=== PATIENT | female | born 1990 | race Caucasian/White ===

== ENCOUNTER 2021-09-27 12:18 | Emergency (ER) | payer OTHER, SELFPAY ==
[2021-09-27 13:17] LABS: Urine Blood Negative (Negative); Urine Glucose Negative (Negative); Urine Protein Negative (Negative)
[2021-09-27 13:22] LABS: Absolute Lymphocytes (CBC) 2.1 K/uL (0.7-4.9); Hematocrit 39.3 % (36.0-45.0); Lymphocytes % 27.7 % (15.3-44.8); MPV 7.7 fL (7.6-11.3); RBC Red Blood Cell Count 4.92 M/uL (3.86-4.86)
[2021-09-27 13:28] LABS: Protime INR 0.97
[2021-09-27 13:39] LABS: Barbiturates NEGATIVE (NEGATIVE); Benzodiazepines NEGATIVE (NEGATIVE); Cocaine NEGATIVE (NEGATIVE); METHAMPHETAM NEGATIVE (NEGATIVE); Methadone NEGATIVE (NEGATIVE); Opiates NEGATIVE (NEGATIVE); Phencyclidine NEGATIVE (NEGATIVE); THC Cannibis NEGATIVE (NEGATIVE)
[2021-09-27 13:41] LABS: ALT/SGPT 139 U/L (12-78); AST/SGOT 99 U/L (15-37); Albumin 3.6 g/dL (3.4-5.0); Alkaline Phosphatase 311 U/L (45-117); BUN Blood Urea Nitrogen 12 mg/dL (7-18); Bicarbonate 24 mmol/L (21-32); Bilirubin Direct 0.2 mg/dL (0-0.2); Bilirubin Total 0.6 mg/dL (0.2-1.0); Glucose Level 115 mg/dL (74-106); Potassium 4.1 mmol/L (3.5-5.1); Protein, Total 7.4 g/dL (6.4-8.2); Sodium Level 138 mmol/L (136-145)
--- NOTE | 2021-09-27 15:42 | EDPHYS ---
Physician Documentation [facility] Name: Sharon Disla Age: 31 yrs Sex: Female : 1990 Arrival Date: 09/27/2021 Time: 12:22 Bed 15 Private MD: ED Physician Emil Robert HPI: 09/27 13:20 This 31 yrs old Female presents to ER via Ambulatory with complaints of Psych Problem. rn 13:20 Onset: The symptoms/episode began/occurred yesterday. Severity of symptoms: At their rn worst the symptoms were mild in the emergency department the symptoms are unchanged. The patient has not experienced similar symptoms in the past. The patient has not recently seen a physician. Patient reports that in the last few days has been having vivid thoughts and/or daydreams in which she was drowning her dog. Has never had thoughts like this. Denies suicidal or homicidal ideations. Does report has had thoughts of drowning her 3-month-old baby but does not feel like she would act on this and realizes that they are just thoughts and/or dreams. No changes in medication. Does not feel ill. No drugs or alcohol. Spoke to her counselor and her counselor referred her here to the emergency room for evaluation.. 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 - Social history:: Smoking status: Patient reports the use of cigarette tobacco products, smokes one pack cigarettes per day. Patient uses street drugs, marijuana, Patient/guardian denies using alcohol. - Family history:: not pertinent. - Hospitalizations: : No recent hospitalization is reported. ROS: 13:20 Constitutional: Negative for fever, chills, and weight loss, Eyes: Negative for injury, rn pain, redness, and discharge, Neck: Negative for injury, pain, and swelling, Cardiovascular: Negative for chest pain, palpitations, and edema, Respiratory: Negative for shortness of breath, cough, wheezing, and pleuritic chest pain, Abdomen/GI: Negative for abdominal pain, nausea, vomiting, diarrhea, and constipation, Back: Negative for injury and pain, : Negative for injury, bleeding, discharge, and swelling, MS/Extremity: Negative for injury and deformity, Skin: Negative for injury, rash, and discoloration, Neuro: Negative for headache, weakness, numbness, tingling, and seizure, Psych: Negative for suicide ideation, homicidal ideation, and hallucinations. Exam: 13:20 Constitutional: This is a well developed, well nourished patient who is awake, alert, rn tearful Head/Face: Normocephalic, atraumatic. Eyes: Periorbital areas with no swelling, redness, or edema. Cardiovascular: Regular rate and rhythm. No pulse deficits. Respiratory: No increased work of breathing, no retractions or nasal flaring. Abdomen/GI: Soft, non-tender Skin: Warm, dry MS/ Extremity: Pulses equal, no cyanosis. Neuro: Awake and alert, GCS 15 Vital Signs: 12:28 BP 139 / 77; Pulse 92; Resp 18; Temp 97.8(TE); Pulse Ox 99% on R/A; Weight 145.15 kg; ld1 Height 6 ft. 0 in. (182.88 cm); Pain 0/10; 15:54 BP 104 / 72; Pulse 77; Resp 18; ww 12:28 Body Mass Index 43.40 (145.15 kg, 182.88 cm) ld1 MDM: 12:36 Patient medically screened. rn 15:39 Differential diagnosis: depression, post- depression. Data reviewed: vital signs, rn nurses notes, lab test result(s), EKG, and as a result, I will discharge patient. Counseling: I had a detailed discussion with the patient and/or guardian regarding: the historical points, exam findings, and any diagnostic results supporting the discharge/admit diagnosis, lab results, the need for outpatient follow up, to return to the emergency department if symptoms worsen or persist or if there are any questions or concerns that arise at home. Special discussion: I discussed with the patient/guardian in detail that at this point there is no indication for admission to the hospital. It is understood, however, that if the symptoms persist or worsen the patient needs to return immediately for re-evaluation. Based on the history and exam findings, there is no indication for further emergent testing or inpatient evaluation. I discussed with the patient/guardian the need to see the psychiatrist for further evaluation of the symptoms. ED course: Pt evaluated by [facility], deemed safe for discharge, has f/u appt with her private psychiatrist, does not feel like she is going to act on her thoughts, still denies suicidal or homicidal intent. . 09/27 12:47 Order name: Acetaminophen; Complete Time: 14: 09/27 12:47 Order name: Basic Metabolic Panel; Complete Time: 14: 09/27 12:47 Order name: CBC with Diff; Complete Time: 14: 09/27 12:47 Order name: ETOH Level; Complete Time: 14: 09/27 12:47 Order name: Hepatic Function; Complete Time: 14: 09/27 12:47 Order name: PT-INR; Complete Time: 14:09/27 12:47 Order name: Ptt, Activated; Complete Time: 14: 09/27 12:47 Order name: Salicylate; Complete Time: 14: 09/27 12:47 Order name: Urine Drug Screen; Complete Time: 14: 09/27 12:47 Order name: EKG; Complete Time: 12:48 09/27 13:05 Order name: SARS-COV-2 RT PCR (Document "Date of Onset" if Symptomatic) 09/27 13:06 Order name: SARS-COV-2 RT PCR; Complete Time: 14:08 [facility] 09/27 13:17 Order name: Urine Dipstick-Ancillary; Complete Time: 14: [facility] 09/27 13:22 Order name: Urine --Ancillary (enter results); Complete Time: 14:08 09/27 12:47 Order name: EKG - Nurse/Tech; Complete Time: 13:27 09/27 12:47 Order name: IV Saline Lock; Complete Time: 13:27 09/27 12:47 Order name: Labs collected and sent; Complete Time: 13:27 rn 09/27 12:47 Order name: Suicide Screening ([place]); Complete Time: 15:32 rn 09/27 12:47 Order name: Urine Dipstick-Ancillary (obtain specimen); Complete Time: 13:27 rn 09/27 12:47 Order name: Urine Test (obtain specimen); Complete Time: 13:27 rn Administered Medications: No medications were administered Disposition Summary: 09/27/21 15:41 Discharge Ordered Location: Home rn Problem: new rn Symptoms: have improved rn Condition: Stable rn Diagnosis - Bipolar disorder, unspecified rn - Other depressive episodes rn Followup: rn - With: Private Physician - When: As needed - Reason: Recheck today's complaints, Re-evaluation by your physician Discharge Instructions: - Discharge Summary Sheet rn - Managing Bipolar Disorder rn - Managing Depression, Adult rn Forms: - Medication Reconciliation Form rn - Thank You Letter rn - Antibiotic employment attorney - Prescription Opioid Use rn Signatures: Dispatcher [employer] Emil Black MD MD rn Dibbern, Lauren RN RN ld1
--- NOTE | 2021-09-27 15:42 | ER ---
Nurse's Notes [facility] Name: Sharon Disla Age: 31 yrs Sex: Female : 1990 Arrival Date: 09/27/2021 Time: 12:22 Bed 15 Private MD: Diagnosis: Bipolar disorder, unspecified;Other depressive episodes Presentation: 09/27 12:28 Chief complaint: Patient states: I see a counselor and nurse practitioner for ld1 psychiatric counseling. They referred me to the hospital to be evaluated due to thoughts I am having. I zone out and I have periods of feeling you I am not in control. No more than 30 seconds long, "I lose touch with reality and I could almost see things happening like drowning my dog." "I think she is concerned because I have a new baby." I do not have thoughts of acting on those intentions, but I am concerned because I feel like it is almost a dream. Pt reports having these thoughts about her baby - she says she can see it happening but she doesn't want it to happen. Coronavirus screen: At this time, the client does not indicate any symptoms associated with coronavirus-19. Ebola Screen: No symptoms or risks identified at this time. Initial Sepsis Screen: Does the patient meet any 2 criteria? No. Patient's initial sepsis screen is negative. Does the patient have a suspected source of infection? No. Patient's initial sepsis screen is negative. Risk Assessment: Do you want to hurt yourself or someone else? Patient reports no desire to harm self or others. Onset of symptoms was September 27, 2021. 12:28 Method Of Arrival: Ambulatory ld1 12:28 Acuity: LEDY 2 ld1 Triage Assessment: 12:28 General: Appears in no apparent distress. comfortable, Behavior is calm, cooperative, ld1 appropriate for age. Pain: Denies pain. Neuro: Level of Consciousness is awake, alert, obeys commands, Oriented to person, place, time, situation. Respiratory: Airway is patent Respiratory effort is even, unlabored, Respiratory pattern is regular, symmetrical. GI: Abdomen is round non-distended. 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 - Social history:: Smoking status: Patient reports the use of cigarette tobacco products, smokes one pack cigarettes per day. Patient uses street drugs, marijuana, Patient/guardian denies using alcohol. - Family history:: not pertinent. - Hospitalizations: : No recent hospitalization is reported. Screenin:41 Abuse screen: Denies threats or abuse. Denies injuries from another. Nutritional ww screening: No deficits noted. Tuberculosis screening: No symptoms or risk factors identified. Fall Risk None identified. Assessment: 13:00 General: Appears comfortable, Behavior is calm, cooperative. Pain: Denies pain. Neuro: ww Level of Consciousness is awake, alert, obeys commands, Oriented to person, place, time, situation, Color Buffer are equal bilaterally Moves all extremities. Speech is normal. Cardiovascular: Capillary refill < 3 seconds Patient's skin is warm and dry. Respiratory: Airway is patent Respiratory effort is even, unlabored, Respiratory pattern is regular, symmetrical. GI: No signs and/or symptoms were reported involving the gastrointestinal system. : No signs and/or symptoms were reported regarding the genitourinary system. EENT: No signs and/or symptoms were reported regarding the EENT system. Derm: No signs and/or symptoms reported regarding the dermatologic system. Skin is intact, is healthy with good turgor, Skin is pink, warm \\T\\ dry. 13:00 Reassessment:. ww 14:50 Reassessment: Patient appears in no apparent distress at this time. No changes from ww previously documented assessment. Patient and/or family updated on plan of care and expected duration. Pain level reassessed. Patient is alert, oriented x 3, equal unlabored respirations, skin warm/dry/pink. 15:54 Reassessment: Patient appears in no apparent distress at this time. No changes from ww previously documented assessment. Patient and/or family updated on plan of care and expected duration. Pain level reassessed. Psych: 14:46 [place] Suicide Severity Screening: In the past month, have you wished you were ww or wished you could go to sleep and not wake up? Patient responds "No." "In the past month, have you actually had any thoughts of killing yourself?" Patient responds "no." "In your lifetime, have you ever done anything, started to do anything, or prepared to do anything to end your life?" Patient responds "no.". Subjective: Patient's mood is Delusions are denied, Hallucinations are denied Having thoughts of homicide. Denies plan. Homicidal thoughts directed towards she recently had a new baby and has had thoughts of her baby drowning. Objective: Patient is cooperative, Speech is normal, Affect is appropriate. Interventions: Patient placed in hospital gown. Searched person for dangerous items. Urine collected and sent for urine drug test. Safety Checks: Personal items have been removed. Door is open. No visitors are present at this time. Pt denies substance abuse. Vital Signs: 12:28 BP 139 / 77; Pulse 92; Resp 18; Temp 97.8(TE); Pulse Ox 99% on R/A; Weight 145.15 kg; ld1 Height 6 ft. 0 in. (182.88 cm); Pain 0/10; 15:54 BP 104 / 72; Pulse 77; Resp 18; ww 12:28 Body Mass Index 43.40 (145.15 kg, 182.88 cm) ld1 ED Course: 12:22 Patient arrived in ED. as 12:28 Arm band placed on left wrist. ld1 12:35 Triage completed. ld1 12:36 Emil Robert MD is Attending Physician. rn 12:49 Vaishali Patel RN is Primary Nurse. ww 13:00 Patient has correct armband on for positive identification. Placed in gown. Bed in low ww position. Side rails up X 1. 13:27 SARS-COV-2 RT PCR (Document "Date of Onset" if Symptomatic) Sent. ww 13:45 called the [facility] Crisis line [phone]/ Dia will page out the screener on eb call. 15:05 Linh from [facility] here to screen patient. eb 15:54 No provider procedures requiring assistance completed. intact, bleeding controlled, No ww redness/swelling at site. Pressure dressing applied. Administered Medications: No medications were administered Outcome: 15:41 Discharge ordered by . rn 15:54 Discharged to home ambulatory. ww 15:54 Condition: stable 15:54 Discharge instructions given to patient, Instructed on discharge instructions, follow up and referral plans. medication usage, safety practices, discussed safety plan 15:55 Patient left the ED. ww Signatures: Roxanne Hendrix Roman, MD MD rn Amy Shea Lauren RN RN ld1 Vaishali Patel RN RN ww
[2021-09-27 16:00] VITALS: TEMP 97.8; O2SAT 99
[2021-09-27 16:01] VITALS: BP 104/72
--- NOTE | 2021-09-28 18:18 | EKG ---
Test Date: 2021-09-27 Test Time: 13:22:28 [place] Manager: TROY MEASUREMENT RESULTS: Intervals: Rate: 84 ME: 146 QRSD: 88 QT: 396 QTc: 467 [place]: P: 48 ME: 146 QRS: 7 T: 26 INTERPRETIVE STATEMENTS: Normal sinus rhythm Possible Left atrial enlargement Left ventricular hypertrophy Abnormal ECG No previous ECG available for comparison Electronically Signed On 09-28-21 18:17:29 FINAL INSPECTOR by Sven Mitchell
== END 2021-09-27 15:55 | disposition home or self-care (01) ==
LOC: ER 12:18
DX: F32.89 Other specified depressive episodes (principal); F31.9 Bipolar disorder, unspecified; F17.210 Nicotine dependence, cigarettes, uncomplicated; Z20.822 Contact with and (suspected) exposure to COVID-19
CPT/HCPCS: 93005; 85025; 80048; 36415; 80320; 80329 ×2; 81025; 85610; 80076; 85730; 81003; 80307; 99284; U0003